=== PATIENT | male | born 1965 | race Caucasian/White ===

== ENCOUNTER 2016-09-19 20:49 | Emergency (ER) | payer OTHER, MEDICAID ==
[~2016-09-19] VITALS: Ht 162.6 cm; Wt 81.6 kg
[2016-09-19 20:58] VITALS: BP_SYST 125
--- NOTE | 2016-09-19 21:40 | NUR ---
Patient to ER bed 4 to gown for evaluation. Side rails up. Report given to DANIEL. ALDRIDGE.
--- NOTE | 2016-09-19 21:50 | NUR ---
MD Foster at bedside examining pt
[2016-09-19] MEDS ORDERED: cefTRIAXone 1 GM IVPB PREMIX 50 ML IV ONE (22:00)
[2016-09-19] MEDS ORDERED: ACETAMINOPHEN 500 MG TABLET PO ONE (22:00)
--- NOTE | 2016-09-19 22:00 | NUR ---
Pt brought to ED by caregiver for evaluation of fever . 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 Pt appeared to have mental retardation, lethargic, A&Ox4, no sign of pain or respiratory distress noted. Denies N/V/D. Skin intact. Will continue to monitor
[2016-09-19 22:15] LABS: BASOPHILS # (AUTO) 0.2 K/uL (0.0-0.2); BASOPHILS % (AUTO) 1.5 % (0.0-2.0); EOSINOPHILS # (AUTO) 0.1 K/uL (0.0-0.4); EOSINOPHILS % (AUTO) 0.6 % (0.0-4.0); HEMATOCRIT 45.4 % (36-54); HEMOGLOBIN 15.1 g/dL (14.0-18.0); LYMPHOCYTES # (AUTO) 0.9 K/uL (1.0-5.5); LYMPHOCYTES % (AUTO) 7.2 % (20.5-51.5); MEAN CORPUSCULAR HEMOGLOBIN 31 pg (27-31); MEAN CORPUSCULAR HGB CONC 33 % (32-36); MEAN CORPUSCULAR VOLUME 94 fL (79.0-98.0); MONOCYTES # (AUTO) 1.2 K/uL (0.0-1.0); MONOCYTES % (AUTO) 9.8 % (1.7-9.3); NEUTROPHILS # (AUTO) 9.4 K/uL (1.8-7.7); NEUTROPHILS % (AUTO) 80.9 % (40.0-70.0); PLATELET COUNT (AUTO) 257 K/uL (130-430); RED BLOOD CELL COUNT(AUTO) 4.82 MIL/uL (4.2-6.2); RED CELL DISTRIBUTION WIDTH 12.6 % (9.0-15.0); WHITE BLOOD COUNT (AUTO) 11.8 K/uL (4.8-10.8)
[2016-09-19 22:16] LABS: CALCIUM 8.4 mg/dL (8.4-11.0); CREATININE 0.89 mg/dL (0.55-1.30); POTASSIUM 3.5 mmol/L (3.5-5.1)
[2016-09-19 22:33] LABS: ALBUMIN 3.7 g/dL (3.4-4.8); FREE T4 (FREE THYROXINE) 0.9 ng/dL (0.6-1.6); TOTAL BILIRUBIN 0.3 mg/dL (0.0-1.0); TOTAL PROTEIN, SERUM 7.1 g/dL (6.4-8.3)
--- NOTE | 2016-09-19 23:00 | NUR ---
MD Foster stated pt is not sepsis, will continue to monitor
[2016-09-19 23:20] LABS: BILIRUBIN,URINE NEGATIVE (NEGATIVE); CLARITY/URINE CLEAR (CLEAR); COLOR,URINE YELLOW (YELLOW); GLUCOSE,URINE NEGATIVE (NEGATIVE); KETONES,URINE NEGATIVE (NEGATIVE); LEUKOCYTE ESTERASE ,URINE NEGATIVE (NEGATIVE); NITRITE, URINE NEGATIVE (NEGATIVE); PROTEIN URINE NEGATIVE (NEGATIVE); UROBILINOGEN,URINE 0.2 (0.2-1.0)
[2016-09-19 23:25] LABS: BLOOD, URINE TRACE (NEGATIVE)
[2016-09-19 23:48] LABS: WBC,URINE 0-3 /HPF (0-3)
[2016-09-19 23:49] LABS: BACTERIA,URINE FEW /HPF (None Seen); MUCUS,URINE 1+ /LPF (None Seen)
[2016-09-20] MEDS ORDERED: LEVOFLOXACIN 500 MG/D5W 100 ML IV ONE
--- NOTE | 2016-09-20 00:35 | NUR ---
Pt in bed, NO distress noted, VSS. Caregiver at bedside.
[2016-09-20 01:25] VITALS: BP_SYST 103
--- NOTE | 2016-09-20 01:25 | NUR ---
Patient given written and verbal discharge instructions and verbalizes understanding. ER MD Foster discussed with patient the results and treatment provided. Given copies of tests performed in ER. Patient in stable condition. ID arm band removed. IV catheter removed intact and dressing applied, no active bleeding. Rx of cipro given. Patient educated on pain management and to follow up with PMD. Pain Scale 0/10 Opportunity for questions provided and answered.
== END 2016-09-20 01:25 | disposition home or self-care (01) ==
LOC: SED 20:49
DX: R50.9 Fever, unspecified (principal); G20 Parkinson's disease; Z86.59 Personal history of other mental and behavioral disorders
CPT/HCPCS: 36415; 71010; 80053; 81000; 83880; 84439; 84484; 85025; 87040; 93005; 96365; 96367; 99285; J0696; J1956

== ENCOUNTER 2020-05-10 13:30 | Inpatient (IN) | payer OTHER, MEDICAID, SELFPAY ==
[~2020-05-10] VITALS: Ht 160 cm; Wt 77.1 kg
[2020-05-10 13:55] VITALS: BP_SYST 96
[2020-05-10] MEDS ORDERED: ALBUTEROL SULFATE 0.083% 2.5 MG/3 ML VIAL.NEB INH ONE ×2 (14:45)
[2020-05-10 15:15] LABS: BASOPHILS % (AUTO) 0.3 % (0.0-2.0); HEMATOCRIT 37.1 % (36-54); HEMOGLOBIN 12.6 g/dL (14.0-18.0); LYMPHOCYTES # (AUTO) 0.8 K/uL (1.0-5.5); LYMPHOCYTES % (AUTO) 16.2 % (20.5-51.5); MEAN CORPUSCULAR HEMOGLOBIN 32 pg (27-31); MEAN CORPUSCULAR HGB CONC 34 % (32-36); MEAN CORPUSCULAR VOLUME 94 fL (79.0-98.0); MONOCYTES # (AUTO) 0.8 K/uL (0.0-1.0); MONOCYTES % (AUTO) 16.1 % (1.7-9.3); NEUTROPHILS # (AUTO) 3.5 K/uL (1.8-7.7); NEUTROPHILS % (AUTO) 67.4 % (40.0-70.0); PLATELET COUNT (AUTO) 226 K/uL (130-430); RED BLOOD CELL COUNT(AUTO) 3.93 MIL/uL (4.2-6.2); RED CELL DISTRIBUTION WIDTH 13.2 % (9.0-15.0); WHITE BLOOD COUNT (AUTO) 5.2 K/uL (4.8-10.8)
[2020-05-10 15:24] LABS: PROTHROMBIN TIME 9.9 SECS (9.5-12.5)
[2020-05-10 15:37] LABS: CALCIUM 7.4 mg/dL (8.4-11.0); CREATININE 0.85 mg/dL (0.55-1.30)
[2020-05-10 15:38] LABS: BILIRUBIN,URINE 1+ (NEGATIVE); CLARITY/URINE CLEAR (CLEAR); GLUCOSE,URINE NEGATIVE (NEGATIVE); KETONES,URINE NEGATIVE (NEGATIVE); LEUKOCYTE ESTERASE ,URINE NEGATIVE (NEGATIVE); NITRITE, URINE NEGATIVE (NEGATIVE); PH,URINE 6.5 (5.0-8.0); PROTEIN URINE 2+ (NEGATIVE); UROBILINOGEN,URINE 0.2 (0.2-1.0)
[2020-05-10 15:42] LABS: ALBUMIN 2.7 g/dL (3.4-4.8); TOTAL BILIRUBIN 0.4 mg/dL (0.0-1.0)
[2020-05-10 15:47] LABS: BLOOD, URINE TRACE (NEGATIVE); COLOR,URINE AMBER (YELLOW)
[2020-05-10 15:49] LABS: BACTERIA,URINE FEW /HPF (None Seen); MUCUS,URINE None Seen /LPF (None Seen); RBC,URINE 0-3 /HPF (0-3); WBC,URINE 0-3 /HPF (0-3)
[2020-05-10] MEDS ORDERED: AZITHROMYCIN 500 MG in NS 250 ML IV ONE (17:00)
[2020-05-10] MEDS ORDERED: NACL 0.9% 1,000 ML IV ONE (17:00)
[2020-05-10] MEDS ORDERED: AZITHROMYCIN 500 MG/VIAL (ZITHROMAX) IV ONE ×2 (17:12→21:31)
[2020-05-10 19:30] VITALS: BP_SYST 121
[2020-05-10] MEDS ORDERED: LORazepam 2 MG/ML VIAL IVP PRN (20:00)
[2020-05-10] MEDS ORDERED: HYDROcodone/ACETAMIN 5-325 MG TAB (NORCO/ VICODIN) PO PRN (20:00)
[2020-05-10] MEDS ORDERED: NALOXONE HCL 0.4 MG/ML AMP (NARCAN) IVP PRN ×2 (20:00)
[2020-05-10] MEDS ORDERED: HYDROcodone/ACETAMIN 10-325 MG TAB PO PRN (20:00)
[2020-05-10] MEDS ORDERED: ALBUTEROL SULFATE 0.083% 2.5 MG/3 ML VIAL.NEB INH PRN (20:00)
[2020-05-10] MEDS ORDERED: ONDANSETRON HCL 4 MG/2 ML VIAL IVP PRN (20:00)
[2020-05-10] MEDS: ACETAMINOPHEN 325 MG TABLET PO PRN (20:30)
[2020-05-10] MEDS: NORMAL SALINE 5 ML DISP.SYRIN IVF SCH (21:23)
[2020-05-10] MEDS ORDERED: cefTRIAXone 1 GM IVPB PREMIX 50 ML IV ONE (21:30)
[2020-05-10] MEDS: cefTRIAXone 1 GM IVPB PREMIX 50 ML IV SCH (21:44)
[2020-05-10] MEDS ORDERED: NORMAL SALINE 5 ML DISP.SYRIN IVF SCH (22:00)
[2020-05-10 22:57] VITALS: BP_SYST 101
[2020-05-11] VITALS: BP_SYST 124
[2020-05-11] MEDS: IPRATROPIUM BROM 0.5 MG/2.5 ML VIAL.NEB (ATROVENT) INH SCH ×3 (01:58→07:00)
[2020-05-11] MEDS: NORMAL SALINE 5 ML DISP.SYRIN IVF SCH ×3 (06:40→21:15)
[2020-05-11 06:50] LABS: BASOPHILS % (AUTO) 0.1 % (0.0-2.0); HEMATOCRIT 38.5 % (36-54); HEMOGLOBIN 13.2 g/dL (14.0-18.0); LYMPHOCYTES # (AUTO) 0.7 K/uL (1.0-5.5); LYMPHOCYTES % (AUTO) 13.6 % (20.5-51.5); MEAN CORPUSCULAR HEMOGLOBIN 32 pg (27-31); MEAN CORPUSCULAR HGB CONC 34 % (32-36); MEAN CORPUSCULAR VOLUME 93 fL (79.0-98.0); MONOCYTES # (AUTO) 0.6 K/uL (0.0-1.0); MONOCYTES % (AUTO) 10.7 % (1.7-9.3); NEUTROPHILS # (AUTO) 4.1 K/uL (1.8-7.7); NEUTROPHILS % (AUTO) 75.6 % (40.0-70.0); PLATELET COUNT (AUTO) 232 K/uL (130-430); RED BLOOD CELL COUNT(AUTO) 4.12 MIL/uL (4.2-6.2); RED CELL DISTRIBUTION WIDTH 13.1 % (9.0-15.0); WHITE BLOOD COUNT (AUTO) 5.4 K/uL (4.8-10.8)
[2020-05-11 07:28] LABS: CALCIUM 7.4 mg/dL (8.4-11.0); CREATININE 0.62 mg/dL (0.55-1.30); POTASSIUM 3.5 mmol/L (3.5-5.1)
[2020-05-11 08:04] VITALS: BP_SYST 123
[2020-05-11] MEDS ORDERED: ENOXAPARIN SODIUM 40 MG/0.4 ML SYRINGE SUBCUT ONE (10:30)
[2020-05-11] MEDS ORDERED: CHOLECALCIFEROL (VITAMIN D3) 2,000 UNIT TABLET PO ONE (10:30)
[2020-05-11] MEDS ORDERED: ASCORBIC ACID 500 MG TABLET PO ONE (10:30)
[2020-05-11] MEDS ORDERED: DEXAMETHASONE SOD PHOSPHATE 10 MG/ML VIAL IVP ONE (10:30)
[2020-05-11 12:00] VITALS: BP_SYST 121
[2020-05-11] MEDS: ACETAMINOPHEN 325 MG TABLET PO PRN (12:10)
[2020-05-11] MEDS: ALBUTEROL MDI INHALATION 8 GM INH INH SCH ×3 (12:11→19:55)
[2020-05-11] MEDS ORDERED: VITD400 PO (14:39)
[2020-05-11] MEDS ORDERED: ZIPR20CA2 PO (14:39)
[2020-05-11] MEDS ORDERED: CARB200T PO (14:39)
[2020-05-11] MEDS ORDERED: IBUP-1969 PO (14:39)
[2020-05-11] MEDS ORDERED: ACET167L15 PO (14:39)
[2020-05-11] MEDS ORDERED: NEU300 PO (14:39)
[2020-05-11] MEDS ORDERED: SYN50 PO (14:39)
[2020-05-11] MEDS ORDERED: TRIAMCINOLONE 0.1% TP (14:39)
[2020-05-11] MEDS ORDERED: BENZ0.5T43 PO (14:39)
[2020-05-11] MEDS ORDERED: CLOTRIMAZOLE 1% TP (14:39)
[2020-05-11] MEDS ORDERED: CLOT10TR (14:39)
[2020-05-11] MEDS ORDERED: MIRT15TA7 PO (15:01)
[2020-05-11 16:00] VITALS: BP_SYST 128
[2020-05-11] MEDS ORDERED: ONDANSETRON HCL 4 MG/2 ML VIAL IVP PRN (16:00)
[2020-05-11] MEDS ORDERED: ACETAMINOPHEN 500 MG PO PRN (16:00)
[2020-05-11] MEDS ORDERED: IBUPROFEN 600 MG TABLET PO PRN (16:00)
[2020-05-11] MEDS ORDERED: HYDROcodone/ACETAMIN 5-325 MG TAB (NORCO/ VICODIN) PO PRN (16:00)
[2020-05-11] MEDS ORDERED: ACETAMINOPHEN 325 MG TABLET PO PRN (16:00)
[2020-05-11] MEDS ORDERED: HYDROcodone/ACETAMIN 10-325 MG TAB PO PRN (16:00)
[2020-05-11] MEDS ORDERED: NALOXONE HCL 0.4 MG/ML AMP (NARCAN) IVP PRN ×2 (16:00)
[2020-05-11 20:00] VITALS: BP_SYST 125
[2020-05-11] MEDS: AZITHROMYCIN 500 MG in NS 250 ML IV SCH (21:00)
[2020-05-11] MEDS: cefTRIAXone 1 GM IVPB PREMIX 50 ML IV SCH (21:13)
[2020-05-11] MEDS: BENZTROPINE MESYLATE 1 MG TABLET PO SCH (21:14)
[2020-05-11] MEDS: ZIPRASIDONE HCL 20 MG CAPSULE (GEODON) PO SCH (21:14)
[2020-05-11] MEDS: CLOTRIMAZOLE 1% TOPICAL CREAM 15 GM TP SCH (21:15)
[2020-05-11] MEDS: GABAPENTIN 300 MG CAPSULE PO SCH (21:15)
[2020-05-11] MEDS: MIRTAZAPINE 15 MG TABLET PO SCH (21:15)
[2020-05-11] MEDS: TRIAMCINOLONE ACETONIDE 0.025% 15 GM CREAM.GM. TP SCH (21:15)
[2020-05-12] VITALS: BP_SYST 119
[2020-05-12] MEDS: ALBUTEROL MDI INHALATION 8 GM INH INH SCH ×7 (00:07→23:04)
[2020-05-12] MEDS: NORMAL SALINE 5 ML DISP.SYRIN IVF SCH ×3 (06:00→22:00)
[2020-05-12 07:07] LABS: BASOPHILS % (AUTO) 0.4 % (0.0-2.0); HEMATOCRIT 39.5 % (36-54); HEMOGLOBIN 13.3 g/dL (14.0-18.0); LYMPHOCYTES # (AUTO) 0.7 K/uL (1.0-5.5); MEAN CORPUSCULAR HEMOGLOBIN 32 pg (27-31); MEAN CORPUSCULAR HGB CONC 34 % (32-36); MEAN CORPUSCULAR VOLUME 95 fL (79.0-98.0); MONOCYTES # (AUTO) 0.5 K/uL (0.0-1.0); MONOCYTES % (AUTO) 8.4 % (1.7-9.3); NEUTROPHILS # (AUTO) 5.3 K/uL (1.8-7.7); NEUTROPHILS % (AUTO) 81.2 % (40.0-70.0); PLATELET COUNT (AUTO) 282 K/uL (130-430); RED BLOOD CELL COUNT(AUTO) 4.17 MIL/uL (4.2-6.2); WHITE BLOOD COUNT (AUTO) 6.5 K/uL (4.8-10.8)
[2020-05-12 07:44] LABS: CREATININE 0.67 mg/dL (0.55-1.30); POTASSIUM 3.6 mmol/L (3.5-5.1)
[2020-05-12] MEDS: LEVOTHYROXINE SODIUM 0.05 MG TABLET PO SCH (07:58)
[2020-05-12 08:30] VITALS: BP_SYST 112
[2020-05-12 08:38] LABS: C-REACTIVE PROTEIN QUANT 21.4 mg/dL (0-0.5)
[2020-05-12] MEDS: TRIAMCINOLONE ACETONIDE 0.025% 15 GM CREAM.GM. TP SCH ×2 (08:45→21:00)
[2020-05-12] MEDS: CLOTRIMAZOLE 1% TOPICAL CREAM 15 GM TP SCH ×2 (08:45→21:00)
[2020-05-12 08:51] LABS: ERYTHROCYTE SEDIMENTATION RATE 46 MM/HR (0-15)
[2020-05-12] MEDS: BENZTROPINE MESYLATE 1 MG TABLET PO SCH ×2 (08:57→21:00)
[2020-05-12] MEDS: DEXAMETHASONE SOD PHOSPHATE 10 MG/ML VIAL IVP SCH (08:57)
[2020-05-12] MEDS: ASCORBIC ACID 500 MG TABLET PO SCH (08:57)
[2020-05-12] MEDS: ZIPRASIDONE HCL 20 MG CAPSULE (GEODON) PO SCH ×2 (08:57→21:00)
[2020-05-12] MEDS: CHOLECALCIFEROL (VITAMIN D3) 2,000 UNIT TABLET PO SCH (08:57)
[2020-05-12] MEDS: GABAPENTIN 300 MG CAPSULE PO SCH ×2 (08:57→21:00)
[2020-05-12] MEDS: ENOXAPARIN SODIUM 40 MG/0.4 ML SYRINGE SUBCUT SCH (08:58)
[2020-05-12 09:07] LABS: ALBUMIN 2.3 g/dL (3.4-4.8); BILIRUBIN,DIRECT 0.2 mg/dL (0.0-0.3); TOTAL BILIRUBIN 0.4 mg/dL (0.0-1.0)
[2020-05-12 11:36] VITALS: BP_SYST 128
[2020-05-12 15:20] VITALS: BP_SYST 115
[2020-05-12 20:00] VITALS: BP_SYST 128
[2020-05-12] MEDS: MIRTAZAPINE 15 MG TABLET PO SCH (21:00)
[2020-05-12] MEDS: LORazepam 2 MG/ML VIAL IVP PRN (21:28)
[2020-05-12] MEDS: cefTRIAXone 1 GM IVPB PREMIX 50 ML IV SCH (21:28)
[2020-05-12] MEDS: AZITHROMYCIN 500 MG in NS 250 ML IV SCH (22:10)
[2020-05-13] VITALS: BP_SYST 111
[2020-05-13] MEDS: LORazepam 2 MG/ML VIAL IVP PRN ×2 (02:20→07:01)
[2020-05-13] MEDS: ALBUTEROL MDI INHALATION 8 GM INH INH SCH ×5 (03:00→19:59)
[2020-05-13] MEDS: IPRATROPIUM BROM 0.5 MG/2.5 ML VIAL.NEB (ATROVENT) INH SCH ×2 (07:00→15:00)
[2020-05-13] MEDS: LEVOTHYROXINE SODIUM 0.05 MG TABLET PO SCH (07:00)
[2020-05-13] MEDS: NORMAL SALINE 5 ML DISP.SYRIN IVF SCH ×3 (07:02→21:15)
[2020-05-13 08:00] VITALS: BP_SYST 102
[2020-05-13] MEDS: GABAPENTIN 300 MG CAPSULE PO SCH ×2 (09:00→20:27)
[2020-05-13] MEDS: BENZTROPINE MESYLATE 1 MG TABLET PO SCH ×2 (09:00→20:27)
[2020-05-13] MEDS: ASCORBIC ACID 500 MG TABLET PO SCH (09:00)
[2020-05-13] MEDS: ZIPRASIDONE HCL 20 MG CAPSULE (GEODON) PO SCH ×2 (09:00→20:27)
[2020-05-13] MEDS: CHOLECALCIFEROL (VITAMIN D3) 2,000 UNIT TABLET PO SCH (09:00)
[2020-05-13 09:03] LABS: BASOPHILS % (AUTO) 0.4 % (0.0-2.0); HEMATOCRIT 39.8 % (36-54); HEMOGLOBIN 13.2 g/dL (14.0-18.0); LYMPHOCYTES # (AUTO) 0.5 K/uL (1.0-5.5); LYMPHOCYTES % (AUTO) 4.3 % (20.5-51.5); MEAN CORPUSCULAR HEMOGLOBIN 32 pg (27-31); MEAN CORPUSCULAR HGB CONC 33 % (32-36); MEAN CORPUSCULAR VOLUME 95 fL (79.0-98.0); MONOCYTES # (AUTO) 0.7 K/uL (0.0-1.0); MONOCYTES % (AUTO) 6.7 % (1.7-9.3); NEUTROPHILS # (AUTO) 9.7 K/uL (1.8-7.7); NEUTROPHILS % (AUTO) 88.6 % (40.0-70.0); PLATELET COUNT (AUTO) 359 K/uL (130-430); RED BLOOD CELL COUNT(AUTO) 4.17 MIL/uL (4.2-6.2); RED CELL DISTRIBUTION WIDTH 13.2 % (9.0-15.0)
[2020-05-13] MEDS: DEXAMETHASONE SOD PHOSPHATE 10 MG/ML VIAL IVP SCH (09:40)
[2020-05-13] MEDS: TRIAMCINOLONE ACETONIDE 0.025% 15 GM CREAM.GM. TP SCH ×2 (09:42→20:28)
[2020-05-13] MEDS: CLOTRIMAZOLE 1% TOPICAL CREAM 15 GM TP SCH ×2 (09:42→20:28)
[2020-05-13] MEDS: ENOXAPARIN SODIUM 40 MG/0.4 ML SYRINGE SUBCUT SCH (09:43)
[2020-05-13 09:45] VITALS: BP_SYST 111
[2020-05-13 09:45] LABS: ALBUMIN 2.4 g/dL (3.4-4.8); BILIRUBIN,DIRECT 0.5 mg/dL (0.0-0.3); CALCIUM 7.8 mg/dL (8.4-11.0); CREATININE 0.92 mg/dL (0.55-1.30); POTASSIUM 3.4 mmol/L (3.5-5.1); TOTAL BILIRUBIN 0.5 mg/dL (0.0-1.0)
[2020-05-13 10:20] LABS: ERYTHROCYTE SEDIMENTATION RATE 58 MM/HR (0-15)
[2020-05-13 13:00] VITALS: BP_SYST 135
[2020-05-13] MEDS ORDERED: ACETAMINOPHEN 650 MG SUPP.RECT RC PRN (13:07)
[2020-05-13] MEDS ORDERED: ACETAMINOPHEN 650 MG SUPP.RECT RC ONE (13:10)
[2020-05-13] MEDS ORDERED: COMMUNICATION ORDER XX ONE (13:15)
[2020-05-13 14:36] LABS: C-REACTIVE PROTEIN QUANT 23.6 mg/dL (0-0.5)
[2020-05-13 17:00] VITALS: BP_SYST 125
[2020-05-13] MEDS ORDERED: KCL 20 mEq in 100 mL (PREMIX) 100 ML IV ONE (17:45)
[2020-05-13] MEDS: cefTRIAXone 1 GM IVPB PREMIX 50 ML IV SCH (20:26)
[2020-05-13] MEDS: MIRTAZAPINE 15 MG TABLET PO SCH (20:27)
[2020-05-13 20:31] VITALS: BP_SYST 120
[2020-05-13] MEDS: AZITHROMYCIN 500 MG in NS 250 ML IV SCH (21:15)
[2020-05-14] VITALS: BP_SYST 130
[2020-05-14] MEDS: ALBUTEROL MDI INHALATION 8 GM INH INH SCH ×7 (03:45→23:00)
[2020-05-14] MEDS: LEVOTHYROXINE SODIUM 0.05 MG TABLET PO SCH (06:11)
[2020-05-14] MEDS: NORMAL SALINE 5 ML DISP.SYRIN IVF SCH ×3 (06:11→22:15)
[2020-05-14 06:55] LABS: BASOPHILS % (AUTO) 0.3 % (0.0-2.0); HEMATOCRIT 40.8 % (36-54); HEMOGLOBIN 13.6 g/dL (14.0-18.0); LYMPHOCYTES # (AUTO) 0.6 K/uL (1.0-5.5); LYMPHOCYTES % (AUTO) 4.5 % (20.5-51.5); MEAN CORPUSCULAR HEMOGLOBIN 32 pg (27-31); MEAN CORPUSCULAR HGB CONC 33 % (32-36); MEAN CORPUSCULAR VOLUME 96 fL (79.0-98.0); MONOCYTES # (AUTO) 1.2 K/uL (0.0-1.0); NEUTROPHILS # (AUTO) 11.7 K/uL (1.8-7.7); NEUTROPHILS % (AUTO) 86.2 % (40.0-70.0); PLATELET COUNT (AUTO) 414 K/uL (130-430); RED BLOOD CELL COUNT(AUTO) 4.26 MIL/uL (4.2-6.2); RED CELL DISTRIBUTION WIDTH 13.2 % (9.0-15.0); WHITE BLOOD COUNT (AUTO) 13.6 K/uL (4.8-10.8)
[2020-05-14] MEDS: IPRATROPIUM BROM 0.5 MG/2.5 ML VIAL.NEB (ATROVENT) INH SCH ×2 (07:25→15:00)
[2020-05-14 07:27] LABS: ALBUMIN 2.4 g/dL (3.4-4.8); CALCIUM 8.3 mg/dL (8.4-11.0); CREATININE 0.75 mg/dL (0.55-1.30); POTASSIUM 4.2 mmol/L (3.5-5.1); TOTAL BILIRUBIN 0.5 mg/dL (0.0-1.0)
[2020-05-14 08:00] VITALS: BP_SYST 136
[2020-05-14 08:06] LABS: C-REACTIVE PROTEIN QUANT 29.8 mg/dL (0-0.5)
[2020-05-14 08:08] LABS: ERYTHROCYTE SEDIMENTATION RATE 62 MM/HR (0-15)
[2020-05-14] MEDS: CHOLECALCIFEROL (VITAMIN D3) 2,000 UNIT TABLET PO SCH (09:00)
[2020-05-14] MEDS: ZIPRASIDONE HCL 20 MG CAPSULE (GEODON) PO SCH ×2 (09:00→20:10)
[2020-05-14] MEDS: BENZTROPINE MESYLATE 1 MG TABLET PO SCH ×2 (09:00→20:10)
[2020-05-14] MEDS: GABAPENTIN 300 MG CAPSULE PO SCH ×2 (09:00→20:10)
[2020-05-14] MEDS: ASCORBIC ACID 500 MG TABLET PO SCH (09:00)
[2020-05-14] MEDS: DEXAMETHASONE SOD PHOSPHATE 10 MG/ML VIAL IVP SCH (09:05)
[2020-05-14] MEDS: ENOXAPARIN SODIUM 40 MG/0.4 ML SYRINGE SUBCUT SCH (09:06)
[2020-05-14] MEDS: TRIAMCINOLONE ACETONIDE 0.025% 15 GM CREAM.GM. TP SCH ×2 (09:07→22:15)
[2020-05-14] MEDS: CLOTRIMAZOLE 1% TOPICAL CREAM 15 GM TP SCH ×2 (09:07→22:15)
[2020-05-14] MEDS ORDERED: MORPHINE 2 MG/ML INJ. SYRINGE ONE ×2 (10:11→13:20)
[2020-05-14] MEDS: MORPHINE 2 MG/ML INJ. SYRINGE IVP PRN ×2 (10:13→22:14)
[2020-05-14 12:00] VITALS: BP_SYST 132
[2020-05-14 15:33] VITALS: BP_SYST 125
[2020-05-14] MEDS: MIRTAZAPINE 15 MG TABLET PO SCH (20:10)
[2020-05-14 21:50] VITALS: BP_SYST 130
[2020-05-14] MEDS: AZITHROMYCIN 500 MG in NS 250 ML IV SCH (22:14)
[2020-05-14] MEDS: cefTRIAXone 1 GM IVPB PREMIX 50 ML IV SCH (22:14)
[2020-05-15 00:33] VITALS: BP_SYST 122
[2020-05-15 00:35] VITALS: BP_SYST 122
[2020-05-15] MEDS: ALBUTEROL MDI INHALATION 8 GM INH INH SCH ×5 (03:00→19:35)
[2020-05-15] MEDS: LEVOTHYROXINE SODIUM 0.05 MG TABLET PO SCH (06:51)
[2020-05-15] MEDS: NORMAL SALINE 5 ML DISP.SYRIN IVF SCH ×3 (06:51→22:00)
[2020-05-15 07:47] LABS: ALBUMIN 2.3 g/dL (3.4-4.8); CALCIUM 8.3 mg/dL (8.4-11.0); CREATININE 0.89 mg/dL (0.55-1.30); POTASSIUM 3.8 mmol/L (3.5-5.1); TOTAL BILIRUBIN 0.6 mg/dL (0.0-1.0)
[2020-05-15 08:00] VITALS: BP_SYST 137
[2020-05-15 08:32] LABS: BASOPHILS % (AUTO) 0.3 % (0.0-2.0); HEMATOCRIT 41.7 % (36-54); HEMOGLOBIN 13.7 g/dL (14.0-18.0); LYMPHOCYTES # (AUTO) 0.7 K/uL (1.0-5.5); LYMPHOCYTES % (AUTO) 5.5 % (20.5-51.5); MEAN CORPUSCULAR HEMOGLOBIN 32 pg (27-31); MEAN CORPUSCULAR HGB CONC 33 % (32-36); MEAN CORPUSCULAR VOLUME 97 fL (79.0-98.0); MONOCYTES # (AUTO) 0.9 K/uL (0.0-1.0); MONOCYTES % (AUTO) 6.6 % (1.7-9.3); NEUTROPHILS # (AUTO) 11.5 K/uL (1.8-7.7); NEUTROPHILS % (AUTO) 87.6 % (40.0-70.0); PLATELET COUNT (AUTO) 336 K/uL (130-430); RED BLOOD CELL COUNT(AUTO) 4.31 MIL/uL (4.2-6.2); RED CELL DISTRIBUTION WIDTH 13.5 % (9.0-15.0); WHITE BLOOD COUNT (AUTO) 13.1 K/uL (4.8-10.8)
[2020-05-15] MEDS: BENZTROPINE MESYLATE 1 MG TABLET PO SCH ×2 (08:33→21:00)
[2020-05-15] MEDS: ZIPRASIDONE HCL 20 MG CAPSULE (GEODON) PO SCH ×2 (08:33→21:00)
[2020-05-15] MEDS: GABAPENTIN 300 MG CAPSULE PO SCH ×2 (08:34→21:00)
[2020-05-15] MEDS: CHOLECALCIFEROL (VITAMIN D3) 2,000 UNIT TABLET PO SCH (08:34)
[2020-05-15] MEDS: ASCORBIC ACID 500 MG TABLET PO SCH (08:34)
[2020-05-15] MEDS: DEXAMETHASONE SOD PHOSPHATE 10 MG/ML VIAL IVP SCH (08:46)
[2020-05-15] MEDS: CLOTRIMAZOLE 1% TOPICAL CREAM 15 GM TP SCH ×2 (08:47→21:00)
[2020-05-15] MEDS: ENOXAPARIN SODIUM 40 MG/0.4 ML SYRINGE SUBCUT SCH (08:47)
[2020-05-15] MEDS: TRIAMCINOLONE ACETONIDE 0.025% 15 GM CREAM.GM. TP SCH ×2 (08:47→21:00)
[2020-05-15 08:48] LABS: C-REACTIVE PROTEIN QUANT 38.2 mg/dL (0-0.5)
[2020-05-15] MEDS: MORPHINE 2 MG/ML INJ. SYRINGE IVP PRN ×3 (09:00→21:13)
[2020-05-15 10:07] LABS: ERYTHROCYTE SEDIMENTATION RATE 52 MM/HR (0-15)
[2020-05-15 11:50] VITALS: BP_SYST 159
[2020-05-15 16:46] VITALS: BP_SYST 142
[2020-05-15] MEDS: IPRATROPIUM BROM 0.5 MG/2.5 ML VIAL.NEB (ATROVENT) INH SCH ×2 (19:00→23:00)
[2020-05-15 20:00] VITALS: BP_SYST 120
[2020-05-15] MEDS: cefTRIAXone 1 GM IVPB PREMIX 50 ML IV SCH (21:00)
[2020-05-15] MEDS: AZITHROMYCIN 500 MG in NS 250 ML IV SCH (21:00)
[2020-05-15] MEDS: MIRTAZAPINE 15 MG TABLET PO SCH (21:00)
[2020-05-16] VITALS: BP_SYST 159
[2020-05-16] MEDS: MORPHINE 2 MG/ML INJ. SYRINGE IVP PRN ×5 (00:10→12:54)
[2020-05-16] MEDS: ALBUTEROL MDI INHALATION 8 GM INH INH SCH ×2 (00:10→08:14)
[2020-05-16] MEDS: NORMAL SALINE 5 ML DISP.SYRIN IVF SCH ×2 (06:00→12:50)
[2020-05-16] MEDS: LEVOTHYROXINE SODIUM 0.05 MG TABLET PO SCH (06:14)
[2020-05-16 07:00] LABS: BASOPHILS # (AUTO) 0.1 K/uL (0.0-0.2); BASOPHILS % (AUTO) 0.7 % (0.0-2.0); HEMATOCRIT 43.7 % (36-54); HEMOGLOBIN 14.4 g/dL (14.0-18.0); LYMPHOCYTES # (AUTO) 1.5 K/uL (1.0-5.5); MEAN CORPUSCULAR HEMOGLOBIN 32 pg (27-31); MEAN CORPUSCULAR HGB CONC 33 % (32-36); MEAN CORPUSCULAR VOLUME 96 fL (79.0-98.0); MONOCYTES # (AUTO) 0.8 K/uL (0.0-1.0); MONOCYTES % (AUTO) 4.9 % (1.7-9.3); NEUTROPHILS % (AUTO) 85.4 % (40.0-70.0); PLATELET COUNT (AUTO) 313 K/uL (130-430); RED BLOOD CELL COUNT(AUTO) 4.55 MIL/uL (4.2-6.2); RED CELL DISTRIBUTION WIDTH 13.5 % (9.0-15.0); WHITE BLOOD COUNT (AUTO) 16.4 K/uL (4.8-10.8)
[2020-05-16 07:15] LABS: ALBUMIN 2.4 g/dL (3.4-4.8); CALCIUM 8.2 mg/dL (8.4-11.0); CREATININE 1.08 mg/dL (0.55-1.30); POTASSIUM 3.6 mmol/L (3.5-5.1); TOTAL BILIRUBIN 0.5 mg/dL (0.0-1.0)
[2020-05-16 07:37] LABS: ERYTHROCYTE SEDIMENTATION RATE 28 MM/HR (0-15)
[2020-05-16 08:30] VITALS: BP_SYST 130
[2020-05-16 08:32] LABS: C-REACTIVE PROTEIN QUANT 26.5 mg/dL (0-0.5)
[2020-05-16] MEDS: GABAPENTIN 300 MG CAPSULE PO SCH (09:00)
[2020-05-16] MEDS: ASCORBIC ACID 500 MG TABLET PO SCH (09:00)
[2020-05-16] MEDS: BENZTROPINE MESYLATE 1 MG TABLET PO SCH (09:00)
[2020-05-16] MEDS: CHOLECALCIFEROL (VITAMIN D3) 2,000 UNIT TABLET PO SCH (09:00)
[2020-05-16] MEDS: ZIPRASIDONE HCL 20 MG CAPSULE (GEODON) PO SCH (09:00)
[2020-05-16] MEDS: DEXAMETHASONE SOD PHOSPHATE 10 MG/ML VIAL IVP SCH (09:20)
[2020-05-16] MEDS: ENOXAPARIN SODIUM 40 MG/0.4 ML SYRINGE SUBCUT SCH (09:20)
[2020-05-16] MEDS: CLOTRIMAZOLE 1% TOPICAL CREAM 15 GM TP SCH (09:37)
[2020-05-16] MEDS: TRIAMCINOLONE ACETONIDE 0.025% 15 GM CREAM.GM. TP SCH (09:37)
[2020-05-16 11:31] VITALS: BP_SYST 138
== END 2020-05-16 14:21 | disposition expired | DRG 871 ==
LOC: SED 13:30 → STU 16:58
PROVIDERS: ADMIT Preventive Medicine Preventive Medicine/Occupational Environmental Medicine; ATTEND Preventive Medicine Preventive Medicine/Occupational Environmental Medicine
PROC: 5A09457 Assistance with Respiratory Ventilation, 24-96 Consecutive Hours, Continuous Positive Airway Pressure (ICD-10-PCS; 2020-05-12)
PROC: XW033E5 Introduction of Remdesivir Anti-infective into Peripheral Vein, Percutaneous Approach, New Technology Group 5 (ICD-10-PCS; principal; 2020-05-16)
DX: A41.89 Other specified sepsis (principal); U07.1 COVID-19; E43 Unspecified severe protein-calorie malnutrition; J96.00 Acute respiratory failure, unspecified whether with hypoxia or hypercapnia; J18.9 Pneumonia, unspecified organism; J90 Pleural effusion, not elsewhere classified; Z66 Do not resuscitate; Z51.5 Encounter for palliative care; E03.9 Hypothyroidism, unspecified; E83.52 Hypercalcemia; F32.9 Major depressive disorder, single episode, unspecified; G20 Parkinson's disease; G40.909 Epilepsy, unspecified, not intractable, without status epilepticus; G62.9 Polyneuropathy, unspecified; L30.9 Dermatitis, unspecified; R73.9 Hyperglycemia, unspecified; F29 Unspecified psychosis not due to a substance or known physiological condition; D64.9 Anemia, unspecified; Z68.30 Body mass index [BMI] 30.0-30.9, adult
CPT/HCPCS: 36415; 36600; 71045; 80048; 80053; 80076; 81000-TC; 82728; 82803-TC; 83605; 83880; 84484; 85025; 85379; 85610-TC; 85651-TC; 86140; 86710; 87040-TC; 93005; 94640; 94660; 94760; 96365; 99291; G0378; J0456; J0696; J1100; J1650; J2060; J2270; J3480; J7050; J7613